=== PATIENT | male | born 1955 | race Caucasian/White ===

== ENCOUNTER → 2016-08-15 | Outpatient (CLI) | payer BC ==
[2016-06-28 19:00] VITALS: BP 123/86
[~2016-08-15] MED LIST: ASPI-482 PO; ASPI325T4 PO; ATOR10TA PO; ATORVASTATIN CA80 MG PO; CEFD300C PO; CHOL200044 PO; CLOP75TA27 PO; CRESTOR10 MG PO; DOCU100C; ESOM20CA PO; FENO145T PO; IBUP200T43 PO; ISOS30TA PO; LISI-338 PO; METF500T4 PO; METO25TA9 PO; METR500T PO; MULT1CAP15; MULT1TAB52 PO; NICO1PAT25 TD; OMEG300C PO; OMEP40CA5 PO; ONDA4TAB12 PO
--- NOTE | 2016-08-15 09:59 | RAD ---
Right shoulder, 3 views, 08/15/2016: History: Pain The bony structures are demineralized. No fracture or dislocation is identified. There is mild degenerative change at the acromioclavicular and glenohumeral articulations. The periarticular soft tissues are unremarkable. IMPRESSION: 1. Demineralization. 2. Mild degenerative change. 3. No acute bony abnormality is detected.
== END | disposition home or self-care (01) ==
LOC: DXRADRC 08:46
PROVIDERS: ATTEND Physician Assistant
DX: M25.511 Pain in right shoulder (principal)
CPT/HCPCS: 73030

== ENCOUNTER 2016-08-30 12:45 | Emergency (ER) | payer BC ==
[~2016-08-30] VITALS: Ht 185.4 cm; Wt 104.3 kg
[2016-08-30 12:48] VITALS: BP 137/80
--- NOTE | 2016-08-30 13:23 | ED.ADGEN ---
Past History Past Medical History: Arthritis, CAD, COPD, Diabetes, GERD, High Cholesterol, Hypertension, [place], Pneumonia, Other Past Surgical History: Angioplasty, Tonsillectomy, Other Smoking: Cigarettes, Greater than 1 pack/day, Quit Less Than 1 Year Alcohol Use: None Drug Use: None Adult General HPI HPI Patient is a 61-year-old male presents emergency Department with a 6 hour history of pain on the right side of his scalp that radiates down into his neck and shoulder. Patient describes it as a "ache" but is adamant that he is not having a "headache." The patient denies any associated symptoms such as nausea, vomiting, photophobia or phonophobia. He does report a new pressure behind his right eye. Denies any other focal finding. Patient states he has had similar episodes in the past and that they usually resolve themselves been about a day. He is taken nothing for his symptoms today. He reports that Tylenol the past has not helped him at this sort of pain. Patient reports that his scalp is tender to palpation. Review of Systems Review of Systems Constitutional: Denies fever or chills [] Eyes: Denies change in visual acuity, redness, or eye pain [] HENT: Denies nasal congestion or sore throat [] Respiratory: Denies cough or shortness of breath [] Cardiovascular: No additional information not addressed in HPI [] GI: Denies abdominal pain, nausea, vomiting, bloody stools or diarrhea [] : Denies dysuria or hematuria [] Musculoskeletal: Denies back pain or joint pain [] Integument: Denies rash or skin lesions [] Neurologic: Denies headache, focal weakness or sensory changes [] Endocrine: Denies polyuria or polydipsia [] Current Medications Current Medications Current Medications Medications (Trade) Dose Ordered Sig/Sarah Start Time Stop Time Status Last Admin Dose Admin Acetaminophen/ Aspirin/Caffeine (Excedrin Migraine) 2 tab 1X ONCE 08/30/16 13:30 08/30/16 13:30 DC Allergies Allergies Allergies Coded Allergies Type Severity Reaction Last Updated Verified Penicillins Allergy Intermediate 06/30/14 Yes moxifloxacin Allergy Intermediate 06/30/14 Yes Physical Exam Physical Exam Constitutional: Well developed, well nourished, no acute distress, non-toxic appearance. [] HENT: Normocephalic, atraumatic, bilateral external ears normal, oropharynx moist, no oral exudates, nose normal. Patient's right parietal scalp is tender to palpation without any signs of trauma or rash. [] Eyes: PERRLA, EOMI, conjunctiva normal, no discharge. [] Neck: Normal range of motion, no tenderness, supple, no stridor. [] Skin: Warm, dry, no erythema, no rash. [] Extremities: No tenderness, no cyanosis, no clubbing, ROM intact, no edema. [] Neurologic: Alert and oriented X 3, normal motor function, normal sensory function, no focal deficits noted. [] Psychologic: Affect normal, judgement normal, mood normal. [] Current Patient Data Vital Signs Vital Signs Date Time Temp Pulse Resp B/P Pulse Ox O2 Delivery O2 Flow Rate FiO2 08/30/16 12:48 98.1 98 18 95 Room Air EKG EKG [] Radiology/Procedures Radiology/Procedures [] Course & Med Decision Making Course & Med Decision Making Pertinent Labs and Imaging studies reviewed. (See chart for details) I explained to the patient that I felt like he was describing a typical tension headache as a result of muscle tension or spasm in his scalp. I was not able to isolate a "trigger point" area of origin. I proposed to the patient that we try an oral medication such as Excedrin prior to moving to other modalities of pain relief. I did not feel like this was a migraine headache but did tell him that if the Excedrin was unsuccessful we would try a "migraine cocktail" next. However, a few moments after I left the room the patient left the emergency department throwing his wrist been at registration and telling them "do not bill me" [] Final Impression Final Impression Headache [] Problems: Dragon Disclaimer Dragon Disclaimer This electronic medical record was generated, in whole or in part, using a voice recognition dictation system. JILLIAN OLIVEIRA MD Aug 30, 2016 13:23
[2016-08-30] MEDS ORDERED: ASA/APAP/CAFFEINE 250/250/65MG TABLET. PO ONE (13:30)
== END 2016-08-30 13:05 | disposition left against medical advice (07) ==
LOC: ER 12:45
DX: R51 Headache (principal); I25.10 Atherosclerotic heart disease of native coronary artery without angina pectoris; I10 Essential (primary) hypertension; E78.00 Pure hypercholesterolemia, unspecified; J44.9 Chronic obstructive pulmonary disease, unspecified; K21.9 Gastro-esophageal reflux disease without esophagitis; I25.2 Old myocardial infarction; E11.9 Type 2 diabetes mellitus without complications; M19.90 Unspecified osteoarthritis, unspecified site; F17.210 Nicotine dependence, cigarettes, uncomplicated; Z98.61 Coronary angioplasty status; Z88.0 Allergy status to penicillin; Z88.1 Allergy status to other antibiotic agents
CPT/HCPCS: 99281

== ENCOUNTER → 2016-10-30 | Outpatient (CLI) | payer BC ==
[~2016-10-30] MED LIST changes: -ASPI325T4 PO; +ASPI325T8 PO; -CLOP75TA27 PO; +CLOP75TA57 PO; +DOCU-150; -DOCU100C; -FENO145T PO; +FENO145T32 PO
--- NOTE | 2016-10-30 10:06 | RAD ---
Indication right shoulder pain. Radiating to the upper arm. No known injury. Internally and neck shows a rotated views of the right shoulder were obtained as well as a Y view. No acute finding is seen. There are some degenerative changes at the AC joint. Advanced degenerative changes at the glenohumeral joint are not seen. If further evaluation of the shoulder is warranted an MRI examination could be performed
== END | disposition home or self-care (01) ==
LOC: DXRADRC 09:42
PROVIDERS: ATTEND Physician Assistant Medical
DX: M25.511 Pain in right shoulder (principal)
CPT/HCPCS: 73030

== ENCOUNTER → 2017-01-08 | Outpatient (CLI) | payer BC ==
[2017-01-08 10:23] LABS: ALBUMIN 3.7 g/dL (3.4-5.0); CALCIUM 8.8 mg/dL (8.5-10.1); CREATININE 0.9 mg/dL (0.7-1.3); GFR 85.8; POTASSIUM 3.9 mmol/L (3.5-5.1); TOTAL BILIRUBIN 0.3 mg/dL (0.2-1.0); TOTAL PROTEIN 7.5 g/dL (6.4-8.2)
[2017-01-09 03:08] LABS: HEMOGLOBIN A1C 5.6 % (4.8-5.6)
== END | disposition home or self-care (01) ==
LOC: LAB 08:56
PROVIDERS: ATTEND Nurse Practitioner
DX: E78.5 Hyperlipidemia, unspecified (principal)
CPT/HCPCS: 36415; 80053; 80061; 83036

== ENCOUNTER → 2017-01-14 | Outpatient (CLI) | payer BC ==
--- NOTE | 2017-01-14 08:30 | RAD ---
Exam: Left foot radiograph 01/14/2017 at 0733 hours Indication: Injury to left foot Comparison: Left foot radiograph 04/09/2013 Technique: 3 views of the left foot are provided. Findings: There is no acute fracture or dislocation. Mild joint space narrowing of the interphalangeal joints. No soft tissue swelling. No osseous erosion or soft tissue gas. Bone mineralization is within normal limits. Plantar and posterior calcaneal enthesophytes are present. Impression: No acute fracture or dislocation.
== END | disposition home or self-care (01) ==
LOC: DXRADRC 07:27
PROVIDERS: ATTEND Physician Assistant Medical
DX: S99.922A Unspecified injury of left foot, initial encounter (principal); X58.XXXA Exposure to other specified factors, initial encounter; Y93.89 Activity, other specified; Y92.89 Other specified places as the place of occurrence of the external cause; Y99.8 Other external cause status
CPT/HCPCS: 73630

== ENCOUNTER 2017-06-29 05:14 | Emergency (ER) | payer BC ==
[~2017-06-29] VITALS: Ht 185.4 cm; Wt 104.3 kg
[~2017-06-29 05:14] MED LIST changes: -IBUP200T43 PO; +IBUP200T44 PO; +METO-239 PO; -METO25TA9 PO
--- NOTE | 2017-06-29 05:20 | ED.ADGEN ---
Past History Past Medical History: Arthritis, CAD, COPD, Diabetes, GERD, High Cholesterol, Hypertension, [place], Pneumonia, Other Past Surgical History: Angioplasty, Tonsillectomy, Other Smoking: Cigarettes, Greater than 1 pack/day, Quit Less Than 1 Year Alcohol Use: None Drug Use: None Adult General Chief Complaint Chief Complaint " I ve had this for a month...".. Everyone been sick at work.. I did get a flu shot this year and pneumonia shot...".. It just seems worse the last couple days.." HPI HPI Patient is a 61 year old male who presents with above hx and complaints of sore persistent cough and shortness of breath. Patient does have extensive medical history with arthritis, coronary artery disease, COPD, diabetes, GERD, elevated cholesterol, hypertension, previous MS, and hx tobacco abuse up until l year ago. Patient has been exposed to multiple individuals at work who had influenza. No recent travel. No change in meds. Patient normally follows with Dr. Isaac Neely. Pt. has completed two courses of antibiotics for his respiratory symptoms the past 3 weeks. Review of Systems Review of Systems Constitutional: Subjective history fever or chills [] Eyes: Denies change in visual acuity, redness, or eye pain [] HENT: History of nasal congestion and sore throat [] Respiratory: Persistent cough and shortness of breath [] Cardiovascular: No additional information not addressed in HPI [] GI: Denies abdominal pain, nausea, vomiting, bloody stools or diarrhea [] : Denies dysuria or hematuria [] Musculoskeletal: Denies back pain or joint pain [] Integument: Denies rash or skin lesions [] Neurologic: Denies headache, focal weakness or sensory changes [] Endocrine: Denies polyuria or polydipsia [] All other systems were reviewed and found to be within normal limits, except as documented in this note. Family History Family History Noncontributory Current Medications Current Medications Current Medications Medications (Trade) Dose Ordered Sig/Sarah Start Time Stop Time Status Last Admin Dose Admin Albuterol/ Ipratropium (Duoneb) 3 ml 1X ONCE 06/29/17 05:45 06/29/17 05:46 DC 06/29/17 06:28 3 ML Aspirin (Children'S Aspirin) 324 mg 1X ONCE 06/29/17 05:45 06/29/17 05:46 DC 06/29/17 06:28 324 MG Info (Do NOT chart on this entry -- for MONITORING) 1 each PRN DAILY PRN 06/29/17 06:00 06/29/17 08:38 DC Iohexol (Omnipaque 300 Mg/ml) 75 ml 1X ONCE 06/29/17 06:00 06/29/17 06:01 DC 06/29/17 07:17 75 ML Magnesium Hydroxide (Milk Of Magnesia) 2,400 mg 1X ONCE 06/29/17 08:00 06/29/17 08:01 DC 06/29/17 08:24 2,400 MG Methylprednisolone Sodium Succinate (SOLU-Medrol 125MG VIAL) 125 mg 1X ONCE 06/29/17 05:45 06/29/17 05:46 DC 06/29/17 06:28 125 MG Sodium Chloride 1,000 ml @ 100 mls/hr Q10H 06/29/17 05:30 06/29/17 08:38 DC 06/29/17 06:28 100 MLS/HR Allergies Allergies Allergies Coded Allergies Type Severity Reaction Last Updated Verified Penicillins Allergy Intermediate 06/30/14 Yes moxifloxacin Allergy Intermediate 06/30/14 Yes Physical Exam Physical Exam Constitutional: Moderately acute distress, non-toxic appearance. [] HENT: Normocephalic, atraumatic, bilateral external ears normal, oropharynx moist, mildly injected pharynx, no oral exudates, nose clear rhinorrhea Eyes: PERRLA, EOMI, conjunctiva normal, no discharge. [] Neck: Normal range of motion, no tenderness, supple, no stridor. [] Cardiovascular:Heart rate regular rhythm, no murmur [] Lungs & Thorax: Bilateral breath sounds equal with scattered wheezes on auscultation . Periodic coughing episodes Abdomen: Bowel sounds normal, soft, no tenderness, no masses, no pulsatile masses. Obese Skin: Warm, dry, no erythema, no rash. [] Back: No tenderness, no CVA tenderness. [] Extremities: No tenderness, no cyanosis, no clubbing, ROM intact, no edema. [] Neurologic: Alert and oriented X 3, normal motor function, normal sensory function, no focal deficits noted. [] Psychologic: Affect anxious, judgement normal, mood normal. [] Current Patient Data Vital Signs Vital Signs Date Time Temp Pulse Resp B/P (MAP) Pulse Ox O2 Delivery O2 Flow Rate FiO2 06/29/17 08:30 90 16 125/60 (81) 96 Room Air 06/29/17 05:15 98.0 Lab Results Laboratory Tests Test 06/29/17 06:00 White Blood Count 8.2 x10^3/uL (4.0-11.0) Red Blood Count 4.58 x10^6/uL (4.30-5.70) Hemoglobin 14.7 g/dL (13.0-17.5) Hematocrit 42.2 % (39.0-53.0) Mean Corpuscular Volume 92 fL (79-100) Mean Corpuscular Hemoglobin 32 pg (25-35) Mean Corpuscular Hemoglobin Concent 35 g/dL (31-37) Red Cell Distribution Width 13.1 % (11.5-14.5) Platelet Count 182 x10^3/uL (140-400) Neutrophils (%) (Auto) 65 % (31-73) Lymphocytes (%) (Auto) 20 % (24-48) L Monocytes (%) (Auto) 12 % (0-9) H Eosinophils (%) (Auto) 2 % (0-3) Basophils (%) (Auto) 1 % (0-3) Neutrophils # (Auto) 5.3 x10^3uL (1.8-7.7) Lymphocytes # (Auto) 1.6 x10^3/uL (1.0-4.8) Monocytes # (Auto) 1.0 x10^3/uL (0.0-1.1) Eosinophils # (Auto) 0.2 x10^3/uL (0.0-0.7) Basophils # (Auto) 0.1 x10^3/uL (0.0-0.2) Prothrombin Time 10.4 SEC (9.4-11.4) Prothrombin Time INR 1.0 (0.9-1.1) PTT 23 SEC (23-33) D-Dimer (Loan) 0.37 mg/L (0.00-0.50) Urine Collection Type Unknown Urine Color Yellow Urine Clarity Clear Urine pH 5.5 Urine Specific [place] 1.020 Urine Protein Neg (NEG-TRACE) Urine Glucose (UA) Neg mg/dL (NEG) Urine Ketones (Stick) Neg mg/dL (NEG) Urine Blood Neg (NEG) Urine Nitrite Neg (NEG) Urine Bilirubin Neg (NEG) Urine Urobilinogen Dipstick 0.2 mg/dL (0.2 mg/dL) Urine Leukocyte Esterase Neg (NEG) Urine RBC Rare /HPF (0-2) Urine WBC 1-4 /HPF (0-4) Urine Squamous Epithelial Cells None /LPF Urine Bacteria 0 /HPF (0-FEW) Urine Mucus Slight /LPF Urine Sperm Present /HPF Sodium Level 139 mmol/L (136-145) Potassium Level 3.9 mmol/L (3.5-5.1) Chloride Level 103 mmol/L (98-107) Carbon Dioxide Level 26 mmol/L (21-32) Anion Gap 10 (6-14) Blood Urea Nitrogen 12 mg/dL (8-26) Creatinine 0.9 mg/dL (0.7-1.3) Estimated GFR (Cockcroft-Gault) 85.8 Glucose Level 127 mg/dL (70-99) H Calcium Level 8.8 mg/dL (8.5-10.1) Magnesium Level 1.4 mg/dL (1.8-2.4) L Total Bilirubin 0.3 mg/dL (0.2-1.0) Direct Bilirubin 0.1 mg/dL (0.0-0.2) Aspartate Amino Transferase (AST) 17 U/L (15-37) Alanine Aminotransferase (ALT) 37 U/L (16-63) Alkaline Phosphatase 123 U/L (46-116) H Creatine Kinase 155 U/L (39-308) Creatine Kinase MB (Mass) 0.9 ng/mL (0.0-3.6) Creatine Kinase MB Relative Index 0.6 % (0-4) Troponin I Quantitative < 0.017 ng/mL (0-0.055) MD-Mfy-I-Type Natriuretic Peptide 23 pg/mL (0-124) Total Protein 7.5 g/dL (6.4-8.2) Albumin 3.7 g/dL (3.4-5.0) Lipase 198 U/L (73-393) Urine Opiates Screen Neg (NEG) Urine Methadone Screen Neg (NEG) Urine Barbiturates Neg (NEG) Urine Phencyclidine Screen Neg (NEG) Urine Amphetamine/Methamphetamine Neg (NEG) Urine Benzodiazepines Screen Neg (NEG) Urine Cocaine Screen Neg (NEG) Urine Cannabinoids Screen Neg (NEG) Urine Ethyl Alcohol Neg (NEG) Influenza Type A (Rapid) Negative (NEGATIVE) Influenza Type B (Rapid) Negative (NEGATIVE) Group A Streptococcus Rapid Negative (NEGATIVE) EKG EKG My interpretation of EKG shows a sinus rhythm at 90 bpm. Some intraventricular delay and nonspecific changes anterior lateral leads. But no findings acute STEMI with contralateral changes.[] Radiology/Procedures Radiology/Procedures My interpretation of chest x-ray shows chronic COPD changes. Does have some patchy infiltrate particularly in right lung levin.[] Course & Med Decision Making Course & Med Decision Making Pertinent Labs and Imaging studies reviewed. (See chart for details). Pt. to continue current antibiotics. Must follow up with primary and pulmonary. Pt. is aware of Dr. Miller and Dr. Asencio - at [facility]. Will call for an apt. May need bx. or prolonged antibiotics. Will continue current antibiotics. [] Final Impression Final Impression 1. Dyspnea[] 2. Viral syndrome. 3. Hypomagnesemia 4. Elevated monocytes 5. Diabetes 6. Lung Mass- Abscess vs neoplastic lesion Rt. Lower-- Problems: Dragon Disclaimer Dragon Disclaimer This electronic medical record was generated, in whole or in part, using a voice recognition dictation system. STEPHANIE NYE MD Jun 29, 2017 05:20
[2017-06-29] MEDS ORDERED: IV NORMAL SALINE 1,000ML 1,000 ML IV SCH (05:30)
[2017-06-29] MEDS ORDERED: methylPREDNISolone SOD SUCC PF 125 MG/2 ML VIAL. IV ONE (05:45)
[2017-06-29] MEDS ORDERED: IPRATRPIUM/ALBUTEROL 0.5/2.5MG 3 ML NEBU. NEB ONE (05:45)
[2017-06-29] MEDS ORDERED: ASPIRIN 81 MG TAB.CHEW PO ONE (05:45)
[2017-06-29] MEDS ORDERED: CONTRAST GIVEN MC PRN (06:00)
[2017-06-29] MEDS ORDERED: IOHEXOL 300 MG/ML 75 ML VIAL. IV ONE (06:00)
[2017-06-29 06:29] LABS: BASO # 0.1 x10^3/uL (0.0-0.2); BASO % 1 % (0-3); EOS # 0.2 x10^3/uL (0.0-0.7); EOS % 2 % (0-3); HEMATOCRIT 42.2 % (39.0-53.0); HEMOGLOBIN 14.7 g/dL (13.0-17.5); LYMPH # 1.6 x10^3/uL (1.0-4.8); LYMPH % 20 % (24-48); MEAN CORPUSCULAR HEMOGLOBIN 32 pg (25-35); MEAN CORPUSCULAR HGB CONC 35 g/dL (31-37); MEAN CORPUSCULAR VOLUME 92 fL (79-100); MONO % 12 % (0-9); NEUT # 5.3 x10^3uL (1.8-7.7); NEUT % 65 % (31-73); PLATELET COUNT 182 x10^3/uL (140-400); RED BLOOD COUNT 4.58 x10^6/uL (4.30-5.70); RED CELL DISTRIBUTION WIDTH 13.1 % (11.5-14.5); WHITE BLOOD COUNT 8.2 x10^3/uL (4.0-11.0)
[2017-06-29 06:49] LABS: INFLUENZA A PATIENT NEGATIVE (NEGATIVE); INFLUENZA B PATIENT NEGATIVE (NEGATIVE)
[2017-06-29 06:50] LABS: AMPHETAMINE/METHAMPHETAMINE NEG (NEG); BARBITURATES NEG (NEG); BENZODIAZEPINES NEG (NEG); CANNABINOIDS NEG (NEG); COCAINE NEG (NEG); METHADONE NEG (NEG); OPIATES NEG (NEG); PHENCYCLIDINE NEG (NEG)
[2017-06-29 06:53] LABS: ALBUMIN 3.7 g/dL (3.4-5.0); CALCIUM 8.8 mg/dL (8.5-10.1); CREATININE 0.9 mg/dL (0.7-1.3); DIRECT BILIRUBIN 0.1 mg/dL (0.0-0.2); GFR 85.8; MAGNESIUM 1.4 mg/dL (1.8-2.4); POTASSIUM 3.9 mmol/L (3.5-5.1); TOTAL BILIRUBIN 0.3 mg/dL (0.2-1.0); TOTAL PROTEIN 7.5 g/dL (6.4-8.2)
[2017-06-29 07:01] LABS: BACTERIA,URINE 0 /HPF (0-FEW); BILIRUBIN,URINE NEG (NEG); CLARITY,URINE CLEAR; COLOR,URINE YELLOW; GLUCOSE,URINE NEG (NEG); NITRITE,URINE NEG (NEG); RBC,URINE RARE /HPF (0-2); SPERM,URINE PRESENT /HPF; UROBILINOGEN,URINE 0.2 mg/dL (0.2 mg/dL)
--- NOTE | 2017-06-29 07:48 | RAD ---
Indication: Short of air, cough, symptoms for 2 to 3 days. COPD. Technique: Axial images as well as coronal and sagittal reformatted images are provided. Coronal maximum intensity projection reformatted images are provided. 70 mL of intravenous Omnipaque 300 was administered without complication. Comparison chest radiograph is from earlier today. One or more of the following individualized dose reduction techniques were utilized for this examination: 1. Automated exposure control 2. Adjustment of the mA and/or kV according to patient size 3. Use of iterative reconstruction technique Findings: The contrast bolus is satisfactory. There is no filling defect to suggest pulmonary embolism. There is no aortic aneurysm or dissection. There is mild ectasia of the ascending aortic. Diameter at the level of sinuses is 3.6 cm and at the sinotubular junction 3.0 cm. Mid ascending aorta diameter is 3.7 cm. Heart is not enlarged. Coronary artery calcifications are noted. There is no hilar or mediastinal adenopathy. There are a few mildly prominent right hilar lymph nodes measuring up to 9 mm short axis. Central airways are patent. There is no pleural effusion. There is dependent atelectasis. There is a right lower lobe is elongated tubular structure with air-fluid level extending towards the hilum. This measures up to 5 x 2 cm. The anterior wall is thin. There is no worrisome pulmonary nodule. There is dependent atelectasis. Limited evaluation of the upper abdomen is within normal limits. There are degenerative changes in the spine. Impression: 1. Elongated oval-shaped structure in the right lower lobe extending towards the hilum. This has an air-fluid level. There are also mildly prominent right hilar lymph nodes. Neoplasm and abscess are considerations. Dilated bronchus is considered less likely, there does not appear to be associated pulmonary artery. Please correlate clinically. Short-term follow-up at the minimum is required. 2. Negative for pulmonary embolism.
[2017-06-29] MEDS ORDERED: MAGNESIUM HYDROXIDE 2,400 MG/30 ML ORAL.SUSP. PO ONE (08:00)
--- NOTE | 2017-06-29 08:00 | RAD ---
Indication: Cough, dyspnea. Technique: Two-view chest radiograph was obtained. Comparison is from July 11, 2016. Findings: Nodular opacity is noted in the right lung base, could represent pneumonia or mass. Please see subsequent CT chest report. Otherwise, the lungs are clear. The heart is not enlarged. There is no heart failure. There is no pleural effusion. There are degenerative changes in the spine. Impression: Right lower lobe nodular opacity, please see subsequent CT chest report.
[2017-06-29 08:30] VITALS: BP 125/60
--- NOTE | 2017-06-29 17:54 | EKG ---
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
== END 2017-06-29 08:35 | disposition home or self-care (01) ==
LOC: ER 05:14
DX: R06.00 Dyspnea, unspecified (principal); B34.9 Viral infection, unspecified; E83.42 Hypomagnesemia; D72.821 Monocytosis (symptomatic); E11.9 Type 2 diabetes mellitus without complications; R91.8 Other nonspecific abnormal finding of lung field; E78.00 Pure hypercholesterolemia, unspecified; I10 Essential (primary) hypertension; I25.10 Atherosclerotic heart disease of native coronary artery without angina pectoris; I25.2 Old myocardial infarction; J44.9 Chronic obstructive pulmonary disease, unspecified; K21.9 Gastro-esophageal reflux disease without esophagitis; M19.90 Unspecified osteoarthritis, unspecified site; Z98.61 Coronary angioplasty status; Z87.891 Personal history of nicotine dependence; Z88.0 Allergy status to penicillin; Z88.1 Allergy status to other antibiotic agents
CPT/HCPCS: 36415; 71046; 71275; 80048; 80076; 80307; 81001; 82553; 83690; 83735; 83880; 84443; 84484; 85025; 85379; 85610; 85730; 87040; 87070; 87804; 87880; 93005; 94640; 96361; 96374; 99285; J2930; J7620; Q9967; G0479; J7030

== ENCOUNTER → 2017-08-26 | Outpatient (CLI) | payer BC ==
[2017-08-26 10:13] LABS: ALBUMIN 3.5 g/dL (3.4-5.0); ALBUMIN/GLOBULIN RATIO 0.9 (1.0-1.7); CALCIUM 9.2 mg/dL (8.5-10.1); CREATININE 0.8 mg/dL (0.7-1.3); TOTAL BILIRUBIN 0.3 mg/dL (0.2-1.0); TOTAL PROTEIN 7.2 g/dL (6.4-8.2)
[2017-08-26 18:08] LABS: HEMOGLOBIN A1C 6.6 % (4.8-5.6)
== END | disposition home or self-care (01) ==
LOC: LAB 09:13
PROVIDERS: ATTEND Nurse Practitioner
DX: E11.9 Type 2 diabetes mellitus without complications (principal); E78.5 Hyperlipidemia, unspecified
CPT/HCPCS: 36415; 80053; 80061; 83036

== ENCOUNTER 2017-10-04 15:46 | Emergency (ER) | payer BC ==
[~2017-10-04] VITALS: Ht 185.4 cm; Wt 104.3 kg
[~2017-10-04 15:46] MED LIST changes: -METF500T4 PO; +METF500T5 PO
[2017-10-04 15:55] VITALS: BP 149/90
--- NOTE | 2017-10-06 00:10 | ED.ADGEN ---
Past History Past Medical History: Arthritis, CAD, COPD, Diabetes, GERD, High Cholesterol, Hypertension, [place], Pneumonia, Other Past Surgical History: Angioplasty, Tonsillectomy, Other Smoking: Cigarettes, Greater than 1 pack/day, Quit Less Than 1 Year Alcohol Use: None Drug Use: None Adult General Chief Complaint Chief Complaint Skin rash HPI HPI Patient is a 62-year-old male with history of CAD, diabetes, COPD who presents with worsening skin rash over bilateral upper extremities. Patient was seen by his PCP for the same yesterday. He was given a shot of steroids and prescribed Medrol Dosepak's. Patient states since the injection and after one dose methylprednisone, his rash is now more inflamed and painful. Also reports more intense itching. Although the patient reports recent poison joaquim exposure, he does not have rash on hands face or anywhere else. States he was told by his PCP that rash was possibly related to a virus. No new medications or history of drug reactions. No fever chills or sweats, history of cellulitis or MRSA. Patient seeking additional relief. [] Review of Systems Review of Systems Review symptoms as per history of present illness. All other review symptoms are negative. All other systems were reviewed and found to be within normal limits, except as documented in this note. Allergies Allergies Allergies Coded Allergies Type Severity Reaction Last Updated Verified Penicillins Allergy Intermediate 06/30/14 Yes moxifloxacin Allergy Intermediate 06/30/14 Yes Physical Exam Physical Exam Constitutional: Well developed, well nourished, no acute distress, non-toxic appearance. [] HENT: Normocephalic, atraumatic, bilateral external ears normal, oropharynx moist, no oral exudates, nose normal. [] Eyes: PERRLA, EOMI, conjunctiva normal, no discharge. [] Neck: Normal range of motion, no tenderness, supple, no stridor. [] Cardiovascular:Heart rate regular rhythm, no murmur [] Lungs & Thorax: Bilateral breath sounds clear to auscultation [] Abdomen: Bowel sounds normal, soft, no tenderness, no masses, no pulsatile masses. [] Skin: Diffuse follicular, erythematous rash over her extremities, primarily extensor services. No rash noted over face, torso or lower extremities. Sparing of hands. [] Back: No tenderness, no CVA tenderness. [] Extremities: No joint swelling, tenderness or warmth.. [] Neurologic: Alert and oriented X 3, normal motor function, normal sensory function, no focal deficits noted. [] Psychologic: Affect normal, judgement normal, mood normal. [] Current Patient Data Vital Signs Vital Signs Date Time Temp Pulse Resp B/P (MAP) Pulse Ox O2 Delivery O2 Flow Rate FiO2 10/04/17 15:55 98.0 95 20 100 EKG EKG [] Radiology/Procedures Radiology/Procedures [] Course & Med Decision Making Course & Med Decision Making Pertinent Labs and Imaging studies reviewed. (See chart for details) [Rash, uncertain etiology. Concern for possible dermatitis versus folliculitis. Recommendations are for Keflex and Atarax. Patient declines recommendations and leaves prior to discharge instructions and without prescriptions] Final Impression Final Impression [1. Rash of upper extremities] Problems: Dragon Disclaimer Dragon Disclaimer This electronic medical record was generated, in whole or in part, using a voice recognition dictation system. DANIEL POOLE DO October 06, 2017 00:10
== END 2017-10-04 16:45 | disposition home or self-care (01) ==
LOC: ER 15:46
DX: R21 Rash and other nonspecific skin eruption (principal); L29.9 Pruritus, unspecified; M19.90 Unspecified osteoarthritis, unspecified site; I25.10 Atherosclerotic heart disease of native coronary artery without angina pectoris; J44.9 Chronic obstructive pulmonary disease, unspecified; E11.9 Type 2 diabetes mellitus without complications; K21.9 Gastro-esophageal reflux disease without esophagitis; E78.00 Pure hypercholesterolemia, unspecified; I10 Essential (primary) hypertension; I25.2 Old myocardial infarction; Z98.61 Coronary angioplasty status; Z87.891 Personal history of nicotine dependence; Z88.0 Allergy status to penicillin; Z88.1 Allergy status to other antibiotic agents
CPT/HCPCS: 99283

== ENCOUNTER → 2017-11-24 | Outpatient (CLI) | payer BC ==
[2017-11-24 12:59] LABS: BASO # 0.1 x10^3/uL (0.0-0.2); BASO % 1 % (0-3); EOS # 0.1 x10^3/uL (0.0-0.7); EOS % 2 % (0-3); HEMATOCRIT 43.6 % (39.0-53.0); HEMOGLOBIN 14.9 g/dL (13.0-17.5); LYMPH # 2.2 x10^3/uL (1.0-4.8); LYMPH % 34 % (24-48); MEAN CORPUSCULAR HEMOGLOBIN 31 pg (25-35); MEAN CORPUSCULAR HGB CONC 34 g/dL (31-37); MEAN CORPUSCULAR VOLUME 92 fL (79-100); MONO # 0.6 x10^3/uL (0.0-1.1); MONO % 9 % (0-9); NEUT # 3.5 x10^3uL (1.8-7.7); NEUT % 54 % (31-73); PLATELET COUNT 208 x10^3/uL (140-400); RED BLOOD COUNT 4.73 x10^6/uL (4.30-5.70); RED CELL DISTRIBUTION WIDTH 13.3 % (11.5-14.5); WHITE BLOOD COUNT 6.5 x10^3/uL (4.0-11.0)
[2017-11-24 13:13] LABS: ALBUMIN 3.7 g/dL (3.4-5.0); ALBUMIN/GLOBULIN RATIO 0.9 (1.0-1.7); CREATININE 0.9 mg/dL (0.7-1.3); GFR 85.5; POTASSIUM 4.2 mmol/L (3.5-5.1); TOTAL BILIRUBIN 0.3 mg/dL (0.2-1.0); TOTAL PROTEIN 7.6 g/dL (6.4-8.2)
== END | disposition home or self-care (01) ==
LOC: PMG 12:08
PROVIDERS: ATTEND Neuromusculoskeletal Medicine & OMM
DX: R10.84 Generalized abdominal pain (principal); R91.8 Other nonspecific abnormal finding of lung field; R06.00 Dyspnea, unspecified
CPT/HCPCS: 36415; 80053; 83880; 84484; 85025; 85379; 86803

== ENCOUNTER → 2018-06-08 | Outpatient (CLI) | payer BC ==
[~2018-06-08] MED LIST changes: +METF500T16 PO; -METF500T5 PO
--- NOTE | 2018-06-09 07:54 | RAD ---
Chest, 2 views, 06/08/2017: HISTORY: Cough Comparison is made to a study from 07/11/2016. The heart size and pulmonary vascularity are normal. There is an elongated pulmonary opacity in the right lower lobe. This density has progressed since 07/11/2016. This corresponds in location to a right lower lobe mass evident on the 06/29/2017 CT study. No new pulmonary abnormality is seen. There is no evidence of pleural fluid. IMPRESSION: Persistent right lower lobe mass raising the possibility of a pulmonary neoplasm. CT scanning with comparison to the 06/29/2017 exam is suggested for further evaluation. Electronically signed by: Romain Mendoza MD (06/09/2018 7:50 AM) [facility]
== END | disposition home or self-care (01) ==
LOC: PMG 17:07
PROVIDERS: ATTEND Registered Nurse
DX: R05 Cough (principal)
CPT/HCPCS: 71046

== ENCOUNTER 2018-10-10 17:46 | Emergency (ER) | payer BC ==
[~2018-10-10] VITALS: Ht 185.4 cm; Wt 104.3 kg
[2018-10-10 17:46] VITALS: BP 142/87
--- NOTE | 2018-10-10 18:13 | ED.ADGEN ---
Past History Past Medical History: Arthritis, CAD, COPD, Diabetes, GERD, High Cholesterol, Hypertension, PA, Pneumonia, Other Past Surgical History: Angioplasty, Tonsillectomy, Other Smoking: Cigarettes, Greater than 1 pack/day, Quit Less Than 1 Year Alcohol Use: None Drug Use: None Adult General Chief Complaint Chief Complaint ".. I got this facial pain.. Dr. Escobedo.. said I had sinusitis.. and put me on doxycycline.. .. it not help.. but have bad teeth too..." HPI HPI Patient is a 63 year old male who presents with Lt facial pain. Patient has severe dental decay and upper plate. Recently fractured tooth 10. Patient currently on doxycycline for sinusitis. Patient is not remember his last tetanus. Patient denies any history immunosuppression. No travel. No specific ill contacts. Made follow-up with dentist as yet. Review of Systems Review of Systems Constitutional: Denies fever or chills [] Eyes: Denies change in visual acuity, redness, or eye pain [] HENT: Denies nasal congestion or sore throat []complaints of left facial discomfort and dental pain. Respiratory: Denies cough or shortness of breath [] Cardiovascular: No additional information not addressed in HPI [] GI: Denies abdominal pain, nausea, vomiting, bloody stools or diarrhea [] : Denies dysuria or hematuria [] Musculoskeletal: Denies back pain or joint pain [] Integument: Denies rash or skin lesions [] Neurologic: Denies headache, focal weakness or sensory changes [] Endocrine: Denies polyuria or polydipsia [] All other systems were reviewed and found to be within normal limits, except as documented in this note. Family History Family History Non-contributory Current Medications Current Medications Current Medications Medications (Trade) Dose Ordered Sig/Sarah Start Time Stop Time Status Last Admin Dose Admin Ceftriaxone Sodium (Rocephin Im) 1 gm 1X ONCE 10/10/18 18:30 10/10/18 18:31 DC 10/10/18 18:38 1 GM Prednisone (Prednisone) 60 mg 1X ONCE 10/10/18 18:30 10/10/18 18:31 DC 10/10/18 18:37 60 MG Allergies Allergies Allergies Coded Allergies Type Severity Reaction Last Updated Verified Penicillins Allergy Intermediate 10/10/18 Yes moxifloxacin Allergy Intermediate 1/29/15 Yes Physical Exam Physical Exam Constitutional: moderately acute distress, non-toxic appearance. [] HENT: Normocephalic, atraumatic, bilateral external ears normal, oropharynx moist, no oral exudates, nose normal. Fracture incisor tooth and multiple areas of dental decay. Eyes: PERRLA, EOMI, conjunctiva normal, no discharge. [] Neck: Normal range of motion, no tenderness, supple, no stridor. [] Cardiovascular:Heart rate regular rhythm, no murmur [] Lungs & Thorax: Bilateral breath sounds equal at apexes on auscultation [] Abdomen: Bowel sounds normal, soft, no tenderness, no masses, no pulsatile masses. Obese. Skin: Warm, dry, no erythema, no rash. [] Back: No tenderness, no CVA tenderness. [] Extremities: No tenderness, no cyanosis, no clubbing, ROM intact, no edema. [] Neurologic: Alert and oriented X 3, normal motor function, normal sensory functi on, no focal deficits noted. [] Psychologic: Affect normal, judgement normal, mood normal. [] Current Patient Data Vital Signs Vital Signs Date Time Temp Pulse Resp B/P (MAP) Pulse Ox O2 Delivery O2 Flow Rate FiO2 10/10/18 19:00 20 Room Air 10/10/18 17:46 98.5 96 97 EKG EKG [] Radiology/Procedures Radiology/Procedures [][place] [address] IMAGING REPORT Signed PATIENT: AZALIA BENTON ACCOUNT: [id number] : 1955 LOCATION: ER AGE: 63 SEX: M EXAM STATUS: REG ER ORD. PHYSICIAN: STEPHANIE NYE MD REASON: Left sided facial pain radiating from maxilla to eye socket PROCEDURE: CT HEAD AND MAXILLOFACIAL WO CT HEAD AND MAXILLOFACIAL WO Indication: Left facial pain, sinus pressure, headache. No history of trauma. Exposure: One or more of the following individualized dose reduction techniques were utilized for this examination: 1. Automated exposure control 2. Adjustment of the mA and/or kV according to patient size 3. Use of iterative reconstruction technique. Technique: Standard imaging without intravenous contrast. Head: Mild motion degradation. No acute intracranial hemorrhage, mass effect, midline shift or abnormal extra-axial fluid collection. Ventricles and sulci appear symmetric. Bryan-white matter distinction appears intact. The orbits appear symmetric. No notable scalp swelling. Partially included sinuses appear clear. No acute skull abnormality. IMPRESSION: No evidence of acute intracranial hemorrhage or mass effect. Facial bones The sinuses are clear. The left ostiomeatal unit is patent. There is mild tissue possibly occluding the right ostiomeatal unit. No fluid levels are seen. No aggressive bone destruction. There are some periapical dental lucencies. Mild degenerative changes of the partially visualized cervical spine. The orbits appear symmetric. No significant soft tissue fluid collection is suspected. IMPRESSION: 1. Mild soft tissue possibly occluding the right ostiomeatal unit. 2. However, there is no evidence of significant mucosal thickening or fluid within the paranasal sinuses. Electronically signed by: Kody Crawford MD (10/10/2018 6:49 PM) [facility] Course & Med Decision Making Course & Med Decision Making Pertinent Labs and Imaging studies reviewed. (See chart for details) Take Keflex 500 three times a day. Must see a dentist. Tylenol and Ibuprofen f or pain. Vicoprofen for marked pain. Flonase spray to nasal and normal saline rinses. Must follow up. [] Final Impression Final Impression 1. Dental Pain[] 2. Hx. of Sinusitis Dragon Disclaimer Dragon Disclaimer This electronic medical record was generated, in whole or in part, using a voice recognition dictation system. Discharge Summary Visit Information Final Diagnosis Problems Medical Problems: (1) Pain, dental Status: Acute Brief Hospital Course Allergies Allergies Coded Allergies Type Severity Reaction Last Updated Verified Penicillins Allergy Intermediate 10/10/18 Yes moxifloxacin Allergy Intermediate 06/30/14 Yes Vital Signs Vital Signs Date Time Temp Pulse Resp B/P (MAP) Pulse Ox O2 Delivery O2 Flow Rate FiO2 10/10/18 19:00 20 Room Air 10/10/18 17:46 98.5 96 97 Brief Hospital Course Mr. Benton is a 63 old male who presented with Lt maxillary and dental pain. Discharge Information Condition at Discharge: Improved, Stable Disposition/Orders: D/C to Home Dischare Medications Current Medications Ceftriaxone Sodium (Rocephin Im) 1 gm 1X ONCE IM Last administered on 10/10/18a t 18:38; Admin Dose 1 GM; Start 10/10/18 at 18:30; Stop 10/10/18 at 18:31; Status DC Prednisone (Prednisone) 60 mg 1X ONCE PO Last administered on 10/10/18at 18:37; Admin Dose 60 MG; Start 10/10/18 at 18:30; Stop 10/10/18 at 18:31; Status DC Active Scripts Active Keflex (Cephalexin) 500 Mg Capsule 500 Mg PO TID Hydrocodone-Ibuprofen 7.5-200 (Hydrocodone/Ibuprofen) 1 Each Tablet 1 Tab PO PRN Q6HRS PRN Cefdinir 300 Mg Capsule 1 Cap PO BID Ondansetron Odt (Ondansetron) 4 Mg Tab.rapdis 1 Tab PO PRN Q6-8HRS PRN Flagyl (Metronidazole) 500 Mg Tablet 1 Tab PO TIDWMEALS Aspirin 325 Mg Tablet 325 Mg PO DAILY see discharge summary Reported NICODERM CQ 14mg (Nicotine) 1 Each Patch.td24 1 Each TD DAILY Motrin Ib (Ibuprofen) 200 Mg Tablet 800 Mg PO PRN Multivitamins (Multivitamin) 1 Each Tablet 1 Each PO DAILY Plavix (Clopidogrel Bisulfate) 75 Mg Tablet 75 Mg PO DAILY Atorvastatin Calcium 80 Mg Tablet 80 Mg PO QHS Omeprazole 40 Mg Capsule.dr 1 Cap PO DAILY D3-2000 (Cholecalciferol (Vitamin D3)) 2,000 Unit Capsule 2,000 Mg PO QD Fish Oil (Leonard-3 Fatty Acids) 300 Mg Capsule 1,200 Mg PO BID Tricor (Fenofibrate Nanocrystallized) 145 Mg Tablet 145 Mg PO DAILY Metoprolol Succinate ( Xl ) (Metoprolol Succinate) 25 Mg Tab.er.24h 25 Mg PO DAILY Metformin Hcl 500 Mg Tablet 500 Mg PO BID Dragon Disclaimer This chart was dictated in whole or in part using Voice Recognition software in a busy, high-work load, and often noisy Emergency Department environment. It may contain unintended and wholly unrecognized errors or omissions. STEPHANIE NYE MD October 10, 2018 18:13
[2018-10-10] MEDS ORDERED: cefTRIAXone IM 1 GM VIAL IM ONE (18:30)
[2018-10-10] MEDS ORDERED: predniSONE 20 MG TABLET PO ONE (18:30)
[2018-10-10] MEDS ORDERED: HYDR-1179 PO (18:36)
[2018-10-10] MEDS ORDERED: CEPH-264 PO (18:36)
--- NOTE | 2018-10-10 18:52 | RAD ---
CT HEAD AND MAXILLOFACIAL WO Indication: Left facial pain, sinus pressure, headache. No history of trauma. Exposure: One or more of the following individualized dose reduction techniques were utilized for this examination: 1. Automated exposure control 2. Adjustment of the mA and/or kV according to patient size 3. Use of iterative reconstruction technique. Technique: Standard imaging without intravenous contrast. Head: Mild motion degradation. No acute intracranial hemorrhage, mass effect, midline shift or abnormal extra-axial fluid collection. Ventricles and sulci appear symmetric. Bryan-white matter distinction appears intact. The orbits appear symmetric. No notable scalp swelling. Partially included sinuses appear clear. No acute skull abnormality. IMPRESSION: No evidence of acute intracranial hemorrhage or mass effect. Facial bones The sinuses are clear. The left ostiomeatal unit is patent. There is mild tissue possibly occluding the right ostiomeatal unit. No fluid levels are seen. No aggressive bone destruction. There are some periapical dental lucencies. Mild degenerative changes of the partially visualized cervical spine. The orbits appear symmetric. No significant soft tissue fluid collection is suspected. IMPRESSION: 1. Mild soft tissue possibly occluding the right ostiomeatal unit. 2. However, there is no evidence of significant mucosal thickening or fluid within the paranasal sinuses. Electronically signed by: Kody Crawford MD (10/10/2018 6:49 PM) [facility]
== END 2018-10-10 19:00 | disposition home or self-care (01) ==
LOC: ER 17:46
DX: K02.9 Dental caries, unspecified (principal); M19.90 Unspecified osteoarthritis, unspecified site; I25.10 Atherosclerotic heart disease of native coronary artery without angina pectoris; J44.9 Chronic obstructive pulmonary disease, unspecified; E11.9 Type 2 diabetes mellitus without complications; K21.9 Gastro-esophageal reflux disease without esophagitis; E78.00 Pure hypercholesterolemia, unspecified; I10 Essential (primary) hypertension; I25.2 Old myocardial infarction; Z87.891 Personal history of nicotine dependence; Z98.61 Coronary angioplasty status; Z88.0 Allergy status to penicillin; Z88.1 Allergy status to other antibiotic agents
CPT/HCPCS: 70450; 70486; 96372; 99284; J0696; J7512

== ENCOUNTER → 2021-05-30 | Outpatient (CLI) | payer BC, MEDICARE ==
[~2021-05-30] MED LIST changes: +CEPH-264 PO; -DOCU-150; +DOCU-158; +HYDR-1179 PO; +IOHEXOL 300 MG/ML 75 ML VIAL. IV ONE; -LISI-338 PO; +LISI5TAB15 PO; +MULT-445 PO; -MULT1TAB52 PO; -OMEP40CA5 PO; +OMEP40CA7 PO
[2021-05-30 08:58] LABS: ALBUMIN 3.8 g/dL (3.4-5.0); CALCIUM 8.9 mg/dL (8.5-10.1); CREATININE 0.9 mg/dL (0.7-1.3); GFR 84.7; POTASSIUM 4.5 mmol/L (3.5-5.1); TOTAL BILIRUBIN 0.3 mg/dL (0.2-1.0); TOTAL PROTEIN 7.5 g/dL (6.4-8.2)
--- NOTE | 2021-05-30 10:10 | RAD ---
EXAM: Chest CT with intravenous contrast. HISTORY: Abnormal finding. TECHNIQUE: Computed tomographic images of the chest were obtained following the administration of int ravenous contrast. Multiplanar reformatting was performed. *One or more of the following individualized dose reduction techniques were utilized for this examina tion: 1. Automated exposure control. 2. Adjustment of the mA and/or kV according to patient size. 3. Use of iterative reconstruction technique. COMPARISON: 06/29/2017. FINDINGS: The heart is normal in size. The aorta is normal in caliber. There is no mediastinal or hil ar lymphadenopathy. There is calcified atherosclerotic plaque involving the coronary arteries. There is no pneumothorax or pleural effusion. There has been interval decrease in a previously demonstrated elongated mass within the right lower l obe with linear extension to the overlying posterior lateral right pleura. The masslike portion of th is lesion measures 5.0 x 1.6 cm in transaxial dimensions, compared to prior measurements of 5.0 x 2.0 cm. There has been near complete resolution of foci of gas within this lesion. There is hepatic steatosis. There is a suspected hepatomegaly, partially excluded from the field-of-v iew. There is no acute finding involving the upper abdomen. There are degenerative changes involving the spine. There is no acute or suspicious osseous finding. IMPRESSION: 1. Slight interval decrease in an elongated masslike lesion within the right lower lobe measuring 5.0 x 1.6 cm. There has been near complete resolution of foci of gas within this lesion. This is associa wanda with attenuation of the traversing bronchi. The absence of lesion progression over a nearly 3 yea r interval favors benignity. However, given the imaging appearance and evidence of radiotracer activi ty associated with this lesion on a PET/CT performed 07/31/2017, repeat PET/CT may be useful for charac terization. 2. Hepatic steatosis and hepatomegaly. Electronically signed by: Erinn Cobb MD (05/30/2021 10:07 AM) [id number]
== END ==
LOC: CT 07:42
PROVIDERS: ATTEND Family Medicine
DX: R91.8 Other nonspecific abnormal finding of lung field (principal); J43.2 Centrilobular emphysema; J98.4 Other disorders of lung; I25.10 Atherosclerotic heart disease of native coronary artery without angina pectoris; K76.0 Fatty (change of) liver, not elsewhere classified; M47.814 Spondylosis without myelopathy or radiculopathy, thoracic region
CPT/HCPCS: 36415; 71260; 80053; Q9967